=== PATIENT | female | born 2000 | race African-American/Black ===

== ENCOUNTER 2021-05-05 15:44 | Emergency (ER) | payer MEDICAID ==
[~2021-05-05] VITALS: Ht 175.3 cm; Wt 77.0 kg
--- NOTE | 2021-05-05 16:26 | PHYS DOC ---
General Adult EDM: Chief Complaint: SUICDAL IDEATION HPI: HPI: Patient is a 21-year-old female who presents to the emergency department today for suicidal ideation with her godmother. Patient reports that she is having visual and auditory hallucinations that have been intermittent since her mother 10 years ago. She reports that the visual hallucinations are demons who tell her to kill herself. Patient does not have an active plan of how she would hurt herself. She states that she is attempted to kill herself in the past with a gun and a knife. Her godmother states that she does have access to these types of weapons. Grandmother is also concerned because she runs away from home and has sex with strangers. She states that patient is currently homeless but they are attempting to find her housing. Patient has followed up previously at [facility] outpatient. She does not have any medical problems or mental disorders. She has never had inpatient placement and does not take any medications. She denies any homicidal ideation Review of Systems: Review of Systems: 14 body systems of the review of systems have been reviewed. See HPI for pertinent positive and negative responses, otherwise all other systems are negative, nonpertinent or noncontributory Heart Score: C/O Chest Pain: N/A Risk Factors: Risk Factors: DM, Current or recent (<one month) smoker, HTN, HLP, family history of CAD, obesity. Risk Scores: Score 0 - 3: 2.5% MACE over next 6 weeks - Discharge Home Score 4 - 6: 20.3% MACE over next 6 weeks - Admit for Clinical Observation Score 7 - 10: 72.7% MACE over next 6 weeks - Early Invasive Strategies Physical Exam: PE: Constitutional: Well developed, well nourished, no acute distress, non-toxic appearance. [] HENT: Normocephalic, atraumatic Eyes: PERRL, EOMI, conjunctiva normal, no discharge. [] Neck: Normal range of motion, no tenderness, supple, no stridor. [] Cardiovascular:Heart rate regular rhythm, no murmur [] Lungs & Thorax: Bilateral breath sounds clear to auscultation [] Abdomen: Soft and flat Skin: Warm, dry, no erythema, no rash. [] Back: Normal range of motion Extremities: No tenderness, no cyanosis, no clubbing, ROM intact, no edema. [] Neurologic: Alert and oriented X 3, normal motor function, normal sensory function, no focal deficits noted. [] Psychologic: Affect normal, judgement normal, mood normal. [] Current Patient Data: Labs: Laboratory Tests Test 05/05/21 16:09 POC Urine HCG, Qualitative Hcg negative (Negative) EKG: EKG: [] Radiology/Procedures: Radiology/Procedures: [] Course & Med Decision Making: Course & Med Decision Making Pertinent Labs and Imaging studies reviewed. (See chart for details) Patient presents to the emergency department today for suicidal ideation. She does not have a current plan. She is experiencing visual and auditory hallucinations. She is attempted in the past with a gun and knife and does have access to these weapons. Patient was placed on one-to-one observation and suicide precautions initiated. Lab work and urinalysis performed for medical clearance. Patient will be consulted with the psychiatric assessment team. Patient is open to inpatient placement. Patient was noted to have mild hypokalemia and this was replaced in the emergency department. She was urged to eat potassium rich foods. Urinalysis did show urinary tract infection she was treated with an antibiotic and given first dose in the ER. Patient medically cleared at this time. Patient was evaluated by member of the psychiatric assessment team and is attempting to place patient at [facility]. Patient was accepted at [facility]. Patient to be transported there via EMS. Sofiaon Disclaimer: Robert Disclaimer: This electronic medical record was generated, in whole or in part, using a voice recognition dictation system. Departure Departure Impression: Primary Impression: Suicidal ideation Additional Impression: Urinary tract infection Qualified Codes: N30.00 - Acute cystitis without hematuria [facility] Condition: GOOD Patient Instructions: Suicidal Feelings, How to Help Yourself, Urinary Tract Infection Additional Instructions: You are seen in the emergency department today for suicidal ideation. Your potassium was mildly low and this was replaced in the emergency department with supplementation. Please make sure that you are eating potassium rich foods at home and bring leafy vegetables and bananas. You are also noted to have a urinary tract infections will be treated with an antibiotic. Please start and finish the antibiotic completely. Increase your fluids and avoid any bladder irritants like caffeine, alcohol or sugary beverages. Please follow-up with [facility]. Return to the emergency department if you develop any suicidal or homicidal ideation. Scripts Cephalexin (KEFLEX) 500 Mg Capsule 1 CAP PO BID for 7 Days, #14 CAP 0 Refills Prov: TARAN GAY APRN 05/05/21 TARAN GAY APRN May 05, 2021 16:26
[2021-05-05 16:33] LABS: BASO # 0.1 x10^3/uL (0.0-0.2); BASO % 1 % (0-3); EOS # 0.1 x10^3/uL (0.0-0.7); EOS % 1 % (0-3); HEMATOCRIT 40.3 % (36.0-47.0); HEMOGLOBIN 13.8 g/dL (12.0-15.5); LYMPH # 3.5 x10^3/uL (1.0-4.8); LYMPH % 37 % (24-48); MEAN CORPUSCULAR HEMOGLOBIN 32 pg (25-35); MEAN CORPUSCULAR HGB CONC 34 g/dL (31-37); MEAN CORPUSCULAR VOLUME 92 fL (79-100); MONO # 0.5 x10^3/uL (0.0-1.1); MONO % 5 % (0-9); NEUT # 5.4 x10^3/uL (1.8-7.7); NEUT % 57 % (31-73); PLATELET COUNT 400 x10^3/uL (140-400); RED BLOOD COUNT 4.36 x10^6/uL (3.50-5.40); RED CELL DISTRIBUTION WIDTH 12.8 % (11.5-14.5); WHITE BLOOD COUNT 9.5 x10^3/uL (4.0-11.0)
[2021-05-05 16:50] LABS: CALCIUM 9.3 mg/dL (8.5-10.1); CREATININE 0.7 mg/dL (0.6-1.0); GFR 129.1; POTASSIUM 3.4 mmol/L (3.5-5.1)
[2021-05-05 16:57] LABS: BILIRUBIN,URINE NEGATIVE (NEG); CLARITY,URINE CLEAR; COLOR,URINE YELLOW; NITRITE,URINE NEGATIVE (NEG); PH,URINE 5.5 (<5.0-8.0); PROTEIN,URINE NEGATIVE (NEG-TRACE); UROBILINOGEN,URINE 0.2 mg/dL (0.2 mg/dL)
[2021-05-05 16:57] LABS: ALBUMIN 4.1 g/dL (3.4-5.0); ALBUMIN/GLOBULIN RATIO 1.1 (1.0-1.7); TOTAL BILIRUBIN 0.5 mg/dL (0.2-1.0); TOTAL PROTEIN 7.7 g/dL (6.4-8.2)
[2021-05-05 16:59] LABS: ACETAMIN < 2 mcg/ml (10-30); ETHANOL < 10 mg/dL (0-10); SALIC 0.3 mg/dL (2.8-20.0)
[2021-05-05 17:09] LABS: BARBITURATES NEG (NEG); BENZODIAZEPINES NEG (NEG); CANNABINOIDS NEG (NEG); COCAINE NEG (NEG); METHADONE NEG (NEG); OPIATES POS (NEG); PHENCYCLIDINE NEG (NEG)
[2021-05-05 17:10] LABS: AMPHETAMINE/METHAMPHETAMINE NEG (NEG)
[2021-05-05 17:16] LABS: BACTERIA,URINE FEW /HPF (0-FEW); RBC,URINE 0 /HPF (0-2)
[2021-05-05] MEDS ORDERED: CEPH500C PO (19:32)
[2021-05-05] MEDS ORDERED: POTASSIUM CHLORIDE 20 MEQ TABLET.ER. PO ONE (19:45)
[2021-05-05] MEDS ORDERED: CEPHALEXIN 250 MG CAPSULE. PO ONE (19:45)
[2021-05-05 22:01] VITALS: BP 104/63
--- NOTE | 2021-05-07 15:21 | NUR ---
IP Attempted to contact pt concerning covid results. No answer, left a voicemail to return the call.
--- NOTE | 2021-05-11 11:35 | NUR ---
Attempted to reach patient regarding test results, no answer. Left voicemail to return call.
== END 2021-05-05 22:15 ==
LOC: ER 15:44
DX: R45.851 Suicidal ideations (principal); N30.00 Acute cystitis without hematuria; Z20.822 Contact with and (suspected) exposure to COVID-19
CPT/HCPCS: 36415; 80053; 80307; 80329; 81001; 81025; 85025; 87086; 87426; 99285; G0480; U0003; U0005

== ENCOUNTER 2021-06-12 09:21 | Emergency (ER) | payer MEDICAID ==
[~2021-06-12] VITALS: Ht 175.3 cm; Wt 69.7 kg
[~2021-06-12 09:21] MED LIST: CEPH500C PO
[2021-06-12] MEDS ORDERED: ONDANSETRON PF 4 MG/2 ML VIAL. IVP ONE (09:45)
[2021-06-12] MEDS ORDERED: KETOROLAC 15 MG/ML VIAL. IVP ONE (09:45)
[2021-06-12] MEDS ORDERED: fentaNYL PF VIAL 100 MCG/2 ML VIAL IVP ONE (09:45)
[2021-06-12] MEDS ORDERED: IV NORMAL SALINE 1000ML BAG 1,000 ML IV ONE (09:45)
--- NOTE | 2021-06-12 09:49 | PHYS DOC ---
Past Medical History Additional Past Medical Histor: AUDITORY HALLUCINATIONS Past Surgical History: No Surgical History Smoking Status: Never Smoker Alcohol Use: None Adult General Chief Complaint Chief Complaint: NAUSEA/VOMITING/DIARRHEA HPI HPI Patient is a 21 year old female presenting to the emergency department for evaluation of multiple complaints including abdominal pain nausea vomiting diarrhea dizziness and 2 syncope episodes. Patient says that she has been feeling more dizzy and having a syncope episode since starting hydroxyzine for depression. Starting yesterday she started having watery diarrhea as well as nonbloody nonbilious emesis and diffuse abdominal pain throughout her entire abdomen. She says she is also on her menstrual cycle now which is also been associated with the syncope episodes. She says abdominal pain is crampy and that the diarrhea is nonbloody and that she has not been on antibiotics within the last several months and she is not on chemotherapy and no recent travel. Th e emesis is more of dry heaves at this time. She says that the syncope episode occurred 1 time yesterday when she was having a panic attack she passed out from standing today she was in the squatting position and stand up suddenly became very lightheaded and then passed out. She is in no acute distress with normal vital signs at this time. Review of Systems Review of Systems Constitutional: Denies fever or chills [] Eyes: Denies change in visual acuity, redness, or eye pain [] HENT: Denies nasal congestion or sore throat [] Respiratory: Denies cough or shortness of breath [] Cardiovascular: No additional information not addressed in HPI [] GI: + abdominal pain, nausea, vomiting, diarrhea [] : Denies dysuria or hematuria [] Musculoskeletal: Denies back pain or joint pain [] Integument: Denies rash or skin lesions [] Neurologic: Denies headache, focal weakness or sensory changes [] All other systems were reviewed and found to be within normal limits, except as documented in this note. Current Medications Current Medications Current Medications Medications (Trade) Dose Ordered Sig/Sarahy Start Time Stop Time Status Last Admin Dose Admin Fentanyl Citrate (Fentanyl 2ml Vial) 50 mcg 1X ONCE 06/12/21 09:45 06/12/21 09:53 DC 06/12/21 10:04 50 MCG Iohexol (Omnipaque 300 Mg/ml) 75 ml 1X ONCE 06/12/21 10:30 06/12/21 10:31 DC 06/12/21 11:14 75 ML Ketorolac Tromethamine (Toradol 15mg Vial) 15 mg 1X ONCE 06/12/21 09:45 06/12/21 09:53 DC 06/12/21 10:04 15 MG Ondansetron HCl (Zofran) 4 mg 1X ONCE 06/12/21 09:45 06/12/21 09:53 DC 06/12/21 10:04 4 MG Sodium Chloride 1,000 ml @ 1,000 mls/hr 1X ONCE 06/12/21 09:45 06/12/21 10:44 DC 06/12/21 10:05 1,000 MLS/HR Allergies Allergies Allergies Coded Allergies Type Severity Reaction Last Updated Verified No Known Drug Allergies 06/12/21 No Physical Exam Physical Exam Constitutional: Well developed, well nourished, no acute distress, non-toxic appearance. [] HENT: Normocephalic, atraumatic, bilateral external ears normal, oropharynx moist, no oral exudates, nose normal. [] Eyes: PERRLA, EOMI, conjunctiva normal, no discharge. [] Neck: Normal range of motion, no tenderness, supple, no stridor. [] Cardiovascular:Heart rate regular rhythm, no murmur [] Lungs & Thorax: Bilateral breath sounds clear to auscultation [] Abdomen: Bowel sounds normal, soft, positive diffuse abdominal tenderness to palpation with no rebound or guarding. Skin: Warm, dry, no erythema, no rash. [] Back: No tenderness, no CVA tenderness. [] Extremities: No tenderness, no cyanosis, no clubbing, ROM intact, no edema. [] Neurologic: Alert and oriented X 3, normal motor function, normal sensory function, no focal deficits noted. [] Current Patient Data Vital Signs Vital Signs Date Time Temp Pulse Resp B/P (MAP) Pulse Ox O2 Delivery O2 Flow Rate FiO2 06/12/21 10:04 Room Air 06/12/21 09:37 98.4 102 18 100/55 (70) 99 98.4 Lab Values Laboratory Tests Test 06/12/21 09:50 06/12/21 10:04 06/12/21 10:05 Urine Collection Type Unknown Urine Color Yellow Urine Clarity Turbid Urine pH 5.5 (<5.0-8.0) Urine Specific Lewis >=1.030 (1.000-1.030) Urine Protein 100 mg/dL (NEG-TRACE) Urine Glucose (UA) Negative mg/dL (NEG) Urine Ketones (Stick) Trace mg/dL (NEG) Urine Blood Large (NEG) Urine Nitrite Negative (NEG) Urine Bilirubin Small (NEG) Urine Urobilinogen Dipstick 0.2 mg/dL (0.2 mg/dL) Urine Leukocyte Esterase Small (NEG) Urine RBC 1-2 /HPF (0-2) Urine WBC 5-10 /HPF (0-4) Urine Squamous Epithelial Cells Many /LPF Urine Bacteria Many /HPF (0-FEW) Urine Mucus Marked /LPF White Blood Count 17.2 x10^3/uL (4.0-11.0) H Red Blood Count 4.56 x10^6/uL (3.50-5.40) Hemoglobin 14.1 g/dL (12.0-15.5) Hematocrit 42.8 % (36.0-47.0) Mean Corpuscular Volume 94 fL (79-100) Mean Corpuscular Hemoglobin 31 pg (25-35) Mean Corpuscular Hemoglobin Concent 33 g/dL (31-37) Red Cell Distribution Width 13.1 % (11.5-14.5) Platelet Count 357 x10^3/uL (140-400) Neutrophils (%) (Auto) 91 % (31-73) H Lymphocytes (%) (Auto) 4 % (24-48) L Monocytes (%) (Auto) 4 % (0-9) Eosinophils (%) (Auto) 1 % (0-3) Basophils (%) (Auto) 0 % (0-3) Neutrophils # (Auto) 15.7 x10^3/uL (1.8-7.7) H Lymphocytes # (Auto) 0.7 x10^3/uL (1.0-4.8) L Monocytes # (Auto) 0.7 x10^3/uL (0.0-1.1) Eosinophils # (Auto) 0.1 x10^3/uL (0.0-0.7) Basophils # (Auto) 0.0 x10^3/uL (0.0-0.2) Segmented Neutrophils % 65 % (35-66) Band Neutrophils % 16 % (0-9) H Lymphocytes % 8 % (24-48) L Monocytes % 10 % (0-10) Eosinophils % 1 % (0-5) Platelet Estimate Adequate (ADEQUATE) Sodium Level 142 mmol/L (136-145) Potassium Level 3.5 mmol/L (3.5-5.1) Chloride Level 105 mmol/L (98-107) Carbon Dioxide Level 27 mmol/L (21-32) Anion Gap 10 (6-14) Blood Urea Nitrogen 12 mg/dL (7-20) Creatinine 0.8 mg/dL (0.6-1.0) Estimated GFR (Cockcroft-Gault) 110.7 BUN/Creatinine Ratio 15 (6-20) Glucose Level 95 mg/dL (70-99) Calcium Level 8.7 mg/dL (8.5-10.1) Total Bilirubin 0.7 mg/dL (0.2-1.0) Aspartate Amino Transferase (AST) 12 U/L (15-37) L Alanine Aminotransferase (ALT) 37 U/L (14-59) Alkaline Phosphatase 86 U/L (46-116) Troponin I High Sensitivity < 4 ng/L (4-50) L Total Protein 7.9 g/dL (6.4-8.2) Albumin 4.0 g/dL (3.4-5.0) Albumin/Globulin Ratio 1.0 (1.0-1.7) Lipase 87 U/L (73-393) Serum Test, Qualitative Negative (NEG) SARS-CoV-2 Antigen (Rapid) Negative (NEGATIVE) Laboratory Tests 06/12/21 10:04 Laboratory Tests 06/12/21 10:04 EKG EKG Normal sinus rhythm at 90 bpm with normal axis no deviation no ST elevation or depression normal T waves. Radiology/Procedures Radiology/Procedures [] Course & Med Decision Making Course & Med Decision Making Patient with multiple complaints that could be related however combination of the new medication with what sounds to be gastroenteritis may be making her dehydrated may be leading to increased dizziness and syncope. I will check labs and imaging treat symptoms and reassess. Patient appears to have findings of an enterocolitis on her CT scan with leukocytosis and dehydration. Patient improved significantly with treatment in the emergency department with resolved pain and vomiting and is able to tolerate fluids by mouth with no difficulty and her repeat abdominal exam is benign. I discussed outpatient treatment with her given she appears well and is asking to go home. I discussed antibiotics and told her that this could make her worse but I will prescribe it for her and if she is not improved within 2 days she can start antibiotics but otherwise I told her to drink plenty of fluids and take supportive medications. Patient told to follow-up primary care provider within 2 to 3 days for recheck and come back to emergency department sooner with worsening pain fevers vomiting or other general concerns. Patient aware and agreeable with plan and verbalized understanding of the above instructions. Dragon Disclaimer Dragon Disclaimer This electronic medical record was generated, in whole or in part, using a voice recognition dictation system. Departure Departure Impression: Primary Impression: Gastroenteritis Additional Impressions: Leukocytosis Dehydration Disposition: HOME / SELF CARE / HOMELESS Condition: IMPROVED Referrals: NO PCP (PCP) Patient Instructions: Viral Gastroenteritis Additional Instructions: I will write you a prescription for antibiotics but do not start them for 2 days if you are still having significant pain or fevers. Follow with primary care provider this week and come back to the emergency department sooner with worsening pain vomiting or other concerns. Scripts Ciprofloxacin Hcl (CIPROFLOXACIN HCL) 500 Mg Tablet 1 TAB PO BID, #14 TAB Prov: DAVID GALEAS DO 06/12/21 Metronidazole (METRONIDAZOLE) 500 Mg Tablet 1 TAB PO BID for 7 Days, #14 TAB 0 Refills Prov: DAVID GALEAS DO 06/12/21 Ondansetron Hcl (ONDANSETRON HCL) 4 Mg Tablet 1 TAB PO PRN Q6HRS PRN for NAUSEA/VOMITING, #14 TAB 0 Refills Prov: DAVID GALEAS DO 06/12/21 Problem Qualifiers DAVID GALEAS DO Jun 12, 2021 09:49
[2021-06-12 10:15] LABS: BASO % 0 % (0-3); EOS # 0.1 x10^3/uL (0.0-0.7); EOS % 1 % (0-3); HEMATOCRIT 42.8 % (36.0-47.0); HEMOGLOBIN 14.1 g/dL (12.0-15.5); LYMPH # 0.7 x10^3/uL (1.0-4.8); LYMPH % 4 % (24-48); MEAN CORPUSCULAR HEMOGLOBIN 31 pg (25-35); MEAN CORPUSCULAR HGB CONC 33 g/dL (31-37); MEAN CORPUSCULAR VOLUME 94 fL (79-100); MONO # 0.7 x10^3/uL (0.0-1.1); MONO % 4 % (0-9); NEUT # 15.7 x10^3/uL (1.8-7.7); NEUT % 91 % (31-73); PLATELET COUNT 357 x10^3/uL (140-400); RED BLOOD COUNT 4.56 x10^6/uL (3.50-5.40); RED CELL DISTRIBUTION WIDTH 13.1 % (11.5-14.5); WHITE BLOOD COUNT 17.2 x10^3/uL (4.0-11.0)
[2021-06-12 10:27] LABS: CALCIUM 8.7 mg/dL (8.5-10.1); CREATININE 0.8 mg/dL (0.6-1.0); GFR 110.7; POTASSIUM 3.5 mmol/L (3.5-5.1)
[2021-06-12] MEDS ORDERED: IOHEXOL 300 MG/ML 100ML VIAL. IV ONE (10:30)
[2021-06-12 10:33] LABS: TOTAL BILIRUBIN 0.7 mg/dL (0.2-1.0); TOTAL PROTEIN 7.9 g/dL (6.4-8.2)
[2021-06-12 10:49] LABS: PREG TEST PT QUAL NEGATIVE (NEG)
[2021-06-12 11:05] LABS: BILIRUBIN,URINE SMALL (NEG); NITRITE,URINE NEGATIVE (NEG); PH,URINE 5.5 (<5.0-8.0); PROTEIN,URINE 100 mg/dL (NEG-TRACE); UROBILINOGEN,URINE 0.2 mg/dL (0.2 mg/dL)
[2021-06-12 11:19] LABS: % BANDS 16 % (0-9); % EOS 1 % (0-5); % LYMPHS 8 % (24-48); % MONOS 10 % (0-10); % SEGS 65 % (35-66)
[2021-06-12 11:20] LABS: PLT ESTIMATE ADEQUATE (ADEQUATE)
[2021-06-12 11:22] LABS: CLARITY,URINE TURBID; COLOR,URINE YELLOW
[2021-06-12 11:23] LABS: BACTERIA,URINE MANY /HPF (0-FEW)
--- NOTE | 2021-06-12 11:27 | RAD ---
EXAMINATION: CT head without IV contrast INDICATION:21 years, Female, syncope. COMPARISON: None TECHNIQUE: Spiral acquisition of contiguous images from the skull base to the vertex were obtained. S agittal and coronal 2D reformatted series were provided by the technologist. Soft tissue and bone win juanito algorithms were reviewed. Exposure: One or more of the following individualized dose reduction techniques were utilized for thi s examination: 1. Automated exposure control 2. Adjustment of the mA and/or kV according to patient size 3. Use of iterative reconstruction technique. FINDINGS: Neither mass, midline shift, intracranial hemorrhage, acute/subacute ischemic changes, nor extraaxial fluid collections are seen. The brain parenchyma is normal in appearance. The ventricles are normal in size. The paranasal sinuses, mastoid air cells, and middle ears are clear. The orbital contents appear within normal limits. Calvarium is unremarkable. IMPRESSION: No evidence of acute intracranial abnormality. Electronically signed by: Ramesh Bello DO (06/12/2021 11:24 AM) [facility]
--- NOTE | 2021-06-12 11:35 | RAD ---
EXAM: CT Abdomen and Pelvis with IV contrast CLINICAL HISTORY: Reason: NAUSEA,VOMITING DIARRHEA, syncope / Spl. Instructions: OMNI 300 INJ. 75 MLS / History: . COMPARISON: none TECHNIQUE: Helical CT of the abdomen and pelvis was performed following the administration of intrave nous contrast. Axial, coronal and sagittal reformatted images were generated. PQRS compliance statement - One or more of the following individualized dose reduction techniques wer e utilized for this study: 1. Automated exposure control 2. Adjustment of the mA and/or kV according to patient size 3. Use of iterative reconstruction technique FINDINGS: Lower Chest: Visualized lung bases are clear. Abdomen and Pelvis: Liver is normal in size and morphology. There is a subcentimeter hypoattenuating lesion in the right hepatic lobe, favoring a simple hepatic cyst. The spleen, adrenals, and pancreas are unremarkable. Normal corticomedullary differentiation with no perinephric fat stranding. No nephrolithiasis or hydr oureteronephrosis. Stomach is unremarkable. No evidence of bowel obstruction. There is mucosal hyperenhancement through the majority of the small bowel as well as the transverse, descending and sigmoid colon with no defin ite surrounding inflammatory changes. The appendix is normal. No free intra-abdominal air or free flu id. No pathologically enlarged abdominal or pelvic adenopathy. The vasculature appears normal in cour se and caliber. Anteverted normal appearing uterus is present with normal positioned intrauterine device. There is a water attenuating 3.6 cm cyst in the left adnexa consistent with a normal physiologic cyst or dominan t follicle. Right adnexa is unremarkable. Urinary bladder is partially decompressed precluding comple te evaluation. Anterior abdominal wall is unremarkable. Bones: No acute or suspicious osseous abnormalities IMPRESSION: 1. Mucosal thickening and hyperenhancement involving multiple segments of small and large bowel sugge stive of mild enterocolitis. 2. Other incidental findings, as above. Electronically signed by: Ramesh Bello DO (06/12/2021 11:33 AM) [facility]
[2021-06-12] MEDS ORDERED: ONDA-84 PO ×2 (11:50→11:59)
[2021-06-12] MEDS ORDERED: METR-34 PO ×2 (11:50→11:59)
[2021-06-12] MEDS ORDERED: CIPR500T2 PO ×2 (11:50→11:59)
[2021-06-12] MEDS ORDERED: HYDR-2761 PO (11:50)
[2021-06-12 11:57] VITALS: BP 98/53
--- NOTE | 2021-06-12 18:25 | EKG ---
[facility] [address] [place] [address] Test Date: 2021-06-12 Test Time: 09:58:22 Pat Name: JUVENTINO RICHARDS Department: Room: Gender: F Cylinder Honer: : 2000 Requested By: DAVID GALEAS Order Number: [id number] Reading MD: Brad Wu MD Measurements Intervals Rolfe Rate: 90 P: 57 UT: 152 QRS: 52 QRSD: 80 T: 4 QT: 346 QTc: 427 Interpretive Statements SINUS RHYTHM Electronically Signed On 06-14-2021 8:25:21 ALPINE PATROLLER by Brad Wu MD
== END 2021-06-12 12:32 | disposition home or self-care (01) ==
LOC: ER 09:21
DX: K52.9 Noninfective gastroenteritis and colitis, unspecified (principal); D72.829 Elevated white blood cell count, unspecified; E86.0 Dehydration
CPT/HCPCS: 36415; 70450; 74177; 80053; 81001; 83690; 84484; 84703; 85007; 85025; 87426; 93005; 96361; 96374; 96375; 99285; J1885; J2405; J3010; J7030; Q9967